=== PATIENT | male | born 1975 | race Caucasian/White ===

== ENCOUNTER 2019-06-14 13:58 | Emergency (ER) | payer MEDICARE, OTHER ==
[2019-06-14 14:45] VITALS: BP 144/94
--- NOTE | 2019-06-14 15:39 | UC ---
Hand/Wrist HPI - HPI Summary HPI Summary: 43-year-old male comes in with a chief complaint of left thumb injury. Earlier today he was trying to control his dog and his left thumb got twisted. Had immediate pain in the proximal phalanx of the left thumb. He is able to move it but it hurts when he moves it. No numbness. No skin break. No complaint of other injuries. - History Of Current Complaint Chief Complaint: UCUpperExtremity Stated Complaint: LEFT THUMB INJURY Time Seen by Provider: 06/14/19 15:29 Pain Intensity: 9 - Allergies/Home Medications Allergies/Adverse Reactions: Allergies Allergy/AdvReac Type Severity Reaction Status Date / Time No Known Allergies Allergy Verified 06/14/19 14:45 Home Medications: Home Medications Baclofen TAB* [Lioresal TAB*] 1 tab PO TID 06/14/19 [History Confirmed 06/14/19 ] Cetirizine* [ZyrTEC 10 MG TAB*] 1 tab PO DAILY 06/14/19 [History Confirmed 06/14] Meloxicam 1 tab PO BID 06/14/19 [History Confirmed 06/14/19] Methadone HCl 1 tab PO QID 06/14/19 [History Confirmed 06/14/19] tiZANidine TAB* [Zanaflex TAB*] 4 mg PO QID 06/14/19 [History Confirmed 06/14/19 ] PMH/Surg Hx/FS Hx/Imm Hx Previously Healthy: Yes - CHRONIC NECK PAIN - Surgical History Surgical History: None - Family History Known Family History: Positive: Non-Contributory - Social History Alcohol Use: None Substance Use Type: None Smoking Status (MU): Former Smoker When Did the Patient Quit Smoking/Using Tobacco: 2010 Review of Systems All Other Systems Reviewed And Are Negative: Yes Constitutional: Positive: Negative Skin: Positive: Negative Eyes: Positive: Negative ENT: Positive: Negative Respiratory: Positive: Negative Cardiovascular: Positive: Negative Gastrointestinal: Positive: Negative Motor: Positive: Other - SEE HPI Neurovascular: Positive: Negative Musculoskeletal: Positive: Other: - SEE HPI Neurological: Positive: Negative Psychological: Positive: Negative Is Patient Immunocompromised?: No Physical Exam Triage Information Reviewed: Yes Appearance: Well-Appearing, Well-Nourished, Pain Distress - MILD WITH LT THUMB EXAM Vital Signs: Initial Vital Signs Temp 98.2 F 06/14/19 14:38 Pulse 79 09/20/19 14:38 Resp 16 06/14/19 14:38 BP 144/94 06/14/19 14:38 Pulse Ox 100 06/14/19 14:38 Vital Signs Reviewed: Yes Eye Exam: Normal Eyes: Positive: Conjunctiva Clear Neck: Positive: Supple Respiratory: Positive: No respiratory distress Musculoskeletal: Positive: Other: - Left thumb is tender to palpation in the proximal aspect there is some swelling. Normal capillary refill normal sensation. Patient does have flexion and extension motion and he has more pain with abduction and abduction. Neurological: Positive: Alert Psychological: Positive: Age Appropriate Behavior Skin Exam: Normal Hand/Wrist Course/Dx - Course Course Of Treatment: Medical Assistant Dermatology: Che Villela S, ([id number]) Locomotive Repairer Diesel: JC (JC) Report Date: 06/14/2019 14:43:00 Report Status: Final Start of Report Content Patient Name: ANSHU ROB Medical Record#: [id number] Ordering Physician: Juan F Myers MD Acct.#: [id number] : Age: 43 Sex: M Location: [facility] Exam Date: 06/14/19 1443 ADM Status: REG ER Order Information: THUMB LEFT Accession Number: [id number] CPT: 21308 Indication: Left thumb pain. 3 views of the left thumb demonstrates no fracture or dislocation. No other bone or joint abnormality is identified. IMPRESSION: No fracture of the left thumb is noted. <Electronically signed by Che Villela MD in OV> 06/14/19 1456 Dictated By: Che Villela MD Dictated Date/Time: 1454 Transcribed Date/Time: 06/14/191454 Copy to: CC:[facility]; No Primary Care Phys,NOPCP ; Juan F Myers MD Imaging - [facility] Imaging - [facility] Imaging - [facility] [address] [facility] [place], [place] [id number] [place] [id number] [place] [id number] ph [phone]) ph ([phone]) ph ([phone]) ===== End of Report Content I discussed the x-rays with the patient and his family. Patient placed in a thumb spica splint and the plan is to follow-up with orthopedics. Patient's Chris on meloxicam and other pain medicines for his chronic neck pain. - Differential Dx/Diagnosis Provider Diagnosis: Left thumb sprain Discharge ED - Sign-Out/Discharge Documenting (check all that apply): Patient Departure All imaging exams completed and their final reports reviewed: Yes - Discharge Plan Condition: Stable Disposition: HOME Patient Education Materials: [employer] (ED) Referrals: Pineda Atwood MD [Medical Doctor] - Additional Instructions: FOLLOW UP WITH ORTHOPEDICS, DR ATWOOD, IF NOT COMPLETELY IMPROVED. GET RECHECKED SOONER IF YOUR CONDITION WORSENS OR ANY QUESTIONS OR CONCERNS. - Billing Disposition and Condition Condition: STABLE Disposition: Home
== END 2019-06-14 15:50 | disposition home or self-care (01) ==
LOC: UCCORT 13:58
DX: S63.602A Unspecified sprain of left thumb, initial encounter (principal); X58.XXXA Exposure to other specified factors, initial encounter; Y93.89 Activity, other specified; Y92.9 Unspecified place or not applicable; G89.29 Other chronic pain; M54.2 Cervicalgia; Z87.891 Personal history of nicotine dependence
CPT/HCPCS: 99201; G0463